=== PATIENT | female | born 1990 | race Two or more races ===

== ENCOUNTER 2024-02-14 05:16 | Inpatient (IN) | payer OTHER ==
[~2024-02-14] VITALS: Ht 162.6 cm; Wt 73.9 kg
[2024-02-14 07:25] LABS: PH,URINE 6.5 (5.0-8.0); URINE APPEARANCE Clear; URINE BILIRRUBIN Negative (NEGATIVE); URINE BLOOD Small; URINE COLOR Yellow; URINE GLUCOSE Negative (NEGATIVE); URINE KETONE Negative (NEGATIVE); URINE LEUKOCYTE Negative; URINE NITRATE Negative; URINE PROTEIN Trace (NEGATIVE); URINE UROBILINOGEN 0.2 E.U./dl
[2024-02-14 07:34] LABS: URINE BACTERIA 1648.9 uL (0.0-1933); URINE EPITHELIAL CELLS 18.2 uL (0.0-38.8)
[2024-02-14 07:37] LABS: HEMATOCRIT 35.8 % (36.0-45.00); HEMOGLOBIN 12.8 g/dL (12.0-15.00); MEAN CELL VOLUME 92.9 fL (80.00-100.00); MEAN CORPUSCULAR HEMOGLOBIN 33.3 pg (27.00-32.0); MEAN CORPUSCULAR HGB CONC 35.8 g/dl (32.0-36.0); PLATELET COUNT 181 K/uL (150-450); RED BLOOD COUNT 3.86 M/uL (4.00-6.00); RED CELL DISTRIBUTION WIDTH 13.8 % (11.5-14.5)
[2024-02-14] MEDS ORDERED: PRENATABS RX T1 EACH PO (07:56)
[2024-02-14 08:04] LABS: INR < 0.93; PARTIAL THROMBOPLASTIN TIME 30.5 SECONDS (22.0-34.0)
[2024-02-14 08:05] LABS: PROTHROMBIN TIME 9.8 SECONDS (9.0-11.5)
[2024-02-14 08:15] LABS: URINE CAST 0.15 uL (0.0-1.40); URINE RBC 1.2 uL (0.0-20.8)
[2024-02-14] MEDS ORDERED: VALTREX1000 MG PO (08:23)
[2024-02-14] MEDS ORDERED: OXYTOCIN 20 UNITS/500ML RL PIGGYBAG IV SCH (12:30)
[2024-02-14] MEDS ORDERED: MEPERIDINE HCL/PF 50 MG/ML VIAL IV STA (18:30)
[2024-02-14] MEDS ORDERED: PROMETHAZINE HCL 25 MG/ML AMPUL IV STA (18:31)
[2024-02-14] MEDS ORDERED: LIDOCAINE HCL 1% 10ML VIAL IJ ONE (21:00)
[2024-02-14] MEDS ORDERED: METHYLERGONOVINE MALEATE 0.2 MG/ML AMPUL IM STA (21:23)
[2024-02-14] MEDS ORDERED: ERYTHROMYCIN BASE 1 GM TUBE OP SCH (21:30)
[2024-02-14] MEDS ORDERED: CHLORHEXIDINE GLUCONATE 120 ML BOTTLE TOP SCH (21:30)
[2024-02-14] MEDS ORDERED: ACETAMINOPHEN 500 MG GEL..CAP PO PRN (21:30)
[2024-02-14] MEDS ORDERED: OXYTOCIN 1,000 ML IV SCH (21:30)
[2024-02-15 02:35] LABS: HEMATOCRIT 35.9 % (36.0-45.00); HEMOGLOBIN 12.3 g/dL (12.0-15.00); MEAN CELL VOLUME 93.7 fL (80.00-100.00); MEAN CORPUSCULAR HGB CONC 34.2 g/dl (32.0-36.0); PLATELET COUNT 186 K/uL (150-450); RED BLOOD COUNT 3.83 M/uL (4.00-6.00); RED CELL DISTRIBUTION WIDTH 13.9 % (11.5-14.5)
[2024-02-15] MEDS ORDERED: PNV,CALCIUM 72/IRON/FOLIC ACID 1 TAB TABLET PO SCH (09:00)
[2024-02-15] MEDS ORDERED: HYDROCORTISONE 2.5% 30 GM TUBE RECTAL SCH (16:56)
== END 2024-02-16 14:32 | disposition home or self-care (01) | DRG 807 ==
LOC: LDR 05:16 → OB/GYN 22:26
PROVIDERS: ADMIT Obstetrics & Gynecology; ATTEND Obstetrics & Gynecology
PROC: 10E0XZZ Delivery of Products of Conception, External Approach (ICD-10-PCS; principal; 2024-02-14)
PROC: 0KQM0ZZ Repair Perineum Muscle, Open Approach (ICD-10-PCS; 2024-02-14)
PROC: 4A1HXCZ Monitoring of Products of Conception, Cardiac Rate, External Approach (ICD-10-PCS; 2024-02-14)
DX: O70.1 Second degree perineal laceration during delivery (principal); Z37.0 Single live birth; Z3A.39 39 weeks gestation of pregnancy; Z20.822 Contact with and (suspected) exposure to COVID-19